=== PATIENT | female | born 1980 | race Caucasian/White ===

== ENCOUNTER 2017-04-27 10:05 | Outpatient (CLI) | payer MEDICARE, MEDICAID | END 2017-04-27 10:06 | disposition home or self-care (01) | LOC: LAB.N 10:05 | PROVIDERS: ATTEND Nurse Practitioner Gerontology | DX: N39.0 Urinary tract infection, site not specified (principal) | CPT/HCPCS: 87086 ==

== ENCOUNTER 2017-07-19 10:36 | Emergency (ER) | payer MEDICARE, MEDICAID ==
[2017-07-19 10:44] VITALS: BP 126/78
--- NOTE | 2017-07-19 10:54 | ED Physician Documentation ---
PD HPI URI - Stated complaint Stated Complaint: SORE THROAT - Chief complaint Chief Complaint: Heent - History obtained from History obtained from: Patient - History of Present Illness Timing - onset: Yesterday Timing duration: Days (1) Timing details: Abrupt onset, Still present Associated symptoms: Sore throat, Swollen nodes. No: Fever, Nasal congestion, Dry cough Contributing factors: Sick contact (her son was Dx with strep culture positive earlier this week.) Similar symptoms before: Has not had sx before Recently seen: Not recently seen Review of Systems Constitutional: denies: Fever Nose: denies: Rhinorrhea / runny nose, Congestion Throat: reports: Sore throat, Swollen tonsils Respiratory: denies: Cough GI: denies: Nausea, Vomiting, Diarrhea Skin: denies: Rash PD PAST MEDICAL HISTORY - Past Medical History Cardiovascular: None Respiratory: None Neuro: Multiple sclerosis, Fainting Endocrine/Autoimmune: None GI: None 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 : None HEENT: None Psych: Anxiety Musculoskeletal: Chronic back pain, Other Derm: None - Past Surgical History Past Surgical History: No - Present Medications Home Medications: Ambulatory Orders Medication Instructions Recorded Confirmed Acyclovir 200 mg PO DAILY 07/19/17 07/19/17 Alprazolam [Xanax] 07/19/17 Amoxicillin 500 mg PO TID #24 capsule 07/19/17 Dextroamphetamine/Amphetamine 5 mg PO PRN PRN 07/19/17 07/19/17 [Adderall 5 mg Tablet] Paroxetine HCl [Paxil] 60 mg PO DAILY 07/19/17 07/19/17 Tamsulosin [Flomax] 0.4 mg PO DAILY 07/19/17 07/19/17 - Allergies Allergies/Adverse Reactions: Allergies Allergy/AdvReac Type Severity Reaction Status Date / Time No Known Drug Allergies Allergy Verified 07/14/13 10:08 - Social History Does the pt smoke?: No Smoking Status: Never smoker - Immunizations Immunizations are current?: Yes PD ED PE NORMAL - Vitals Vital signs reviewed: Yes - General General: Alert and oriented X 3, Well developed/nourished - HEENT HEENT: Ears normal. No: Pharynx benign (red and swollen tonsils with some white exudate. ) - Neck Neck: Supple, no meningeal sign, Other (anterior adenopathy) - Cardiac Cardiac: RRR, No murmur - Respiratory Respiratory: Clear bilaterally - Derm Derm: Normal color, Warm and dry, No rash Results - Vitals Vitals: Vital Signs - 24 hr 07/19/17 10:42 Temperature 36.3 C L Heart Rate 72 Respiratory 17 Rate Blood Pressure 126/78 O2 Saturation 100 Oxygen O2 Source Room air PD MEDICAL DECISION MAKING - ED course Complexity details: considered differential (her son was Dx with culture positive strep earlier this week and now she has sore throat iwth adenopathy and exudate. ), d/w patient Departure - Departure Disposition: Home, Self Care Clinical Impression: Acute bacterial pharyngitis Condition: Stable Record reviewed to determine appropriate education?: Yes Instructions: ED Strep Pharyngitis Conf Follow-Up: Susana Ray ARNP [Primary Care Provider] - Prescriptions: Amoxicillin 500 mg PO TID #24 capsule Comments: Given that her son has confirmed strep and you are now having sore throat with strep symptoms, we will treat it as strep. Drink lots of fluids. Tylenol or ibuprofen if needed for pains. Amoxicillin 500 mg 3 times a day for a week. Recheck if not improved over the next several days. Discharge Date/Time: 07/19/17 12:02
[2017-07-19] MEDS ORDERED: DEXAMETHASONE 10 MG/ML VIAL PO STA (11:04)
[2017-07-19] MEDS ORDERED: AMOXICILLIN 250 MG CAPSULE PO STA (11:04)
[2017-07-19] MEDS ORDERED: AMOXICILLIN 250 MG CAPSULE PO SCH (12:00)
== END 2017-07-19 12:02 | disposition home or self-care (01) ==
LOC: ED 10:36
DX: J02.8 Acute pharyngitis due to other specified organisms (principal); B96.89 Other specified bacterial agents as the cause of diseases classified elsewhere; G35 Multiple sclerosis
CPT/HCPCS: 99283; A9270

== ENCOUNTER 2017-08-26 13:50 | Emergency (ER) | payer MEDICARE, MEDICAID ==
[2017-08-26 14:01] VITALS: BP 138/87
--- NOTE | 2017-08-26 14:35 | XRAY Report ---
EXAM: LEFT FOOT RADIOGRAPHY EXAM DATE: 08/26/2017 02:24 PM. CLINICAL HISTORY: Pain to foot after increased ambulation-MS history. COMPARISON: None. TECHNIQUE: 3 views. FINDINGS: Bones: Normal. No fractures or bone lesions. Joints: Normal. No subluxations. Soft Tissues: Normal. No soft tissue swelling. IMPRESSION: Negative foot radiography. [facility] Referring Provider Line: [phone] SITE ID: [id number]
--- NOTE | 2017-08-26 15:42 | ED Physician Documentation ---
History of Present Illness - Stated complaint Stated Complaint: FOOT PX - Chief complaint Chief Complaint: Ext Problem - History obtained from History obtained from: Patient, Family - History of Present Illness Timing: How many days ago (5) Pain level max: 5 Pain level now: 4 Improved by: Rest Worsened by: Walking - Additonal information Additional information: Patient is a 36-year-old female with a history of multiple sclerosis, recently had a flare and was treated with high-dose steroids. Since that time she has been trying to increase her activity level, walking approximately 3 miles per day. She is started developed pain in her left foot, along the plantar aspect when walking. Sent in by her neurologist for evaluation. 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 HEENT: None Psych: Anxiety Musculoskeletal: Chronic back pain, Other Derm: None - Past Surgical History Past Surgical History: No - Present Medications Home Medications: Ambulatory Orders Medication Instructions Recorded Confirmed Acyclovir 200 mg PO DAILY 07/19/17 07/19/17 Dextroamphetamine/Amphetamine 5 mg PO PRN PRN 07/19/17 07/19/17 [Adderall 5 mg Tablet] Paroxetine HCl [Paxil] 80 mg PO DAILY 07/19/17 07/19/17 Tamsulosin [Flomax] 0.4 mg PO DAILY 07/19/17 07/19/17 Dalfampridine [Ampyra] 10 mg BID 08/26/17 08/26/17 - Allergies Allergies/Adverse Reactions: Allergies Allergy/AdvReac Type Severity Reaction Status Date / Time No Known Drug Allergies Allergy Verified 08/26/17 14:01 - Social History Does the pt smoke?: No Smoking Status: Never smoker Substance Use and Type: Other - Immunizations Immunizations are current?: Yes PD ED PE NORMAL - Vitals Vital signs reviewed: Yes - General General: Alert and oriented X 3, No acute distress, Well developed/nourished - HEENT HEENT: PERRL, Moist mucous membranes - Neck Neck: Supple, no meningeal sign - Cardiac Cardiac: RRR, Strong equal pulses - Respiratory Respiratory: No respiratory distress, Clear bilaterally - Abdomen Abdomen: Soft, Non tender, Non distended - Derm Derm: Warm and dry - Extremities Extremities: No deformity, No tenderness to palpate, Normal ROM s pain, Other ( Normal examination of the bilateral feet. No tenderness. No bruising. Neurovascularly intact) - Neuro Neuro: Alert and oriented X 3 - Psych Psych: Normal mood, Normal affect Results - Vitals Vitals: Vital Signs - 24 hr 08/26/17 13:59 Temperature 36.8 C Heart Rate 82 Respiratory 18 Rate Blood Pressure 138/87 H O2 Saturation 100 Oxygen O2 Source Room air - Rads (name of study) Left foot x-ray Radiology: Prelim report reviewed, EMP read contemporaneously, See rad report ( Normal) PD MEDICAL DECISION MAKING - ED course Complexity details: reviewed results, re-evaluated patient, considered differential, d/w patient, d/w family ED course: Patient is a 36-year-old female presents to the emergency department with what appears to be a left foot sprain. Placed in a postoperative shoe for comfort and she is ambulating quite well with the use of her cane that she uses at home. We did attempt crutches as well, but she does not care for these. Will utilize the postoperative shoe and her cane. Will use Motrin and Tylenol as needed for pain. No fractures. Patient counseled regarding signs and symptoms for which I believe and urgent re-evaluation would be necessary. Patient with good understanding of and agreement to plan and is comfortable going home at this time This document was made in part using voice recognition software. While efforts are made to proofread this document, sound alike and grammatical errors may occur. Departure - Departure Disposition: 01 Home, Self Care Clinical Impression: FSPR (foot sprain) Qualifiers: Encounter type: initial encounter Laterality: left Qualified Code(s): S93.602A - Unspecified sprain of left foot, initial encounter Condition: Good Instructions: ED Sprain Foot Follow-Up: Susana Ray ARNP [Primary Care Provider] - Within 1 week Comments: Use the post op shoe as needed to help heal your sprain. Return if you worsen.
== END 2017-08-26 15:50 | disposition home or self-care (01) ==
LOC: ED 13:50
DX: S93.602A Unspecified sprain of left foot, initial encounter (principal); X50.9XXA Other and unspecified overexertion or strenuous movements or postures, initial encounter; G35 Multiple sclerosis; Z79.52 Long term (current) use of systemic steroids
CPT/HCPCS: 99282; 99283

== ENCOUNTER 2017-11-26 08:00 | Outpatient (CLI) | payer MEDICARE, MEDICAID ==
[2017-11-26 21:06] LABS: HCG,QUALITATIVE BLOOD NEGATIVE
== END 2017-11-26 08:01 ==
LOC: LAB.N 08:00
PROVIDERS: ATTEND Nurse Practitioner Gerontology
DX: N91.2 Amenorrhea, unspecified (principal)
CPT/HCPCS: 36415; 84703

== ENCOUNTER 2017-12-01 14:40 | Outpatient (CLI) | payer MEDICARE, MEDICAID | END 2017-12-01 14:41 | LOC: LAB.WCP 14:40 | PROVIDERS: ATTEND Obstetrics & Gynecology | DX: Z32.01 Encounter for pregnancy test, result positive (principal); Z36.9 Encounter for antenatal screening, unspecified | CPT/HCPCS: 36415; 84702 ==

== ENCOUNTER 2017-12-03 08:00 | Outpatient (CLI) | payer MEDICARE, MEDICAID ==
[2017-12-03 18:58] LABS: BILIRUBIN,URINE NEGATIVE (NEGATIVE); GLUCOSE, URINE (UA) NEGATIVE (NEGATIVE); KETONES,URINE (UA) NEGATIVE (NEGATIVE); LEUKOCYTE ESTERASE, URINE NEGATIVE (NEGATIVE); NITRITE,URINE NEGATIVE (NEGATIVE); OCCULT BLOOD,URINE NEGATIVE (NEGATIVE); PROTEIN,URINE NEGATIVE (NEGATIVE); UROBILINOGEN,URINE 0.2 (NORMAL) E.U./dL (NORMAL)
[2017-12-03 19:09] LABS: BACTERIA,URINE None Seen /HPF (None Seen); BASOPHILS % (AUTO) 0.4 %; CLARITY,URINE CLEAR (CLEAR); EOSINOPHILS # (AUTO) 0.1 10^3/uL (0.0-0.7); EOSINOPHILS % (AUTO) 1.2 %; HGB - HEMOGLOBIN 13.1 g/dL (12.0-16.0); LYMPHOCYTES # (AUTO) 1.4 10^3/uL (1.5-3.5); LYMPHOCYTES % (AUTO) 21.3 %; MEAN CORPUSCULAR HEMOGLOBIN 31.5 pg (27.0-31.0); MEAN CORPUSCULAR VOLUME 95.4 fL (81.0-99.0); MEAN PLATELET VOLUME 9.8 fL (7.9-10.8); MONOCYTES # (AUTO) 0.6 10^3/uL (0.0-1.0); MONOCYTES % (AUTO) 8.8 %; NEUTROPHILS # (AUTO) 4.3 10^3/uL (1.5-6.6); NEUTROPHILS % (AUTO) 68.3 %; PLT - PLATELET COUNT 319 10^3/uL (130-450); RBC,URINE 0-5 /HPF (0-5); RED BLOOD COUNT 4.15 10^6/uL (4.20-5.40); RED CELL DISTRIBUTION WIDTH 13.6 % (12.0-15.0); SQUAMOUS EPITHELIAL CELL,UR FEW Squamous (<= Few); WHITE BLOOD COUNT 6.3 x10^3/uL (4.8-10.8)
[2017-12-04 15:21] LABS: HIV AG/AB 4TH GEN NON-REACTIVE (NON-REACTIVE)
[2017-12-04 16:02] LABS: HEPATITIS B SURFACE ANTIGEN NON-REACTIVE (NON-REACTIVE); HEPATITIS C ANTIBODY NON-REACTIVE (NON-REACTIVE)
== END 2017-12-03 08:01 ==
LOC: LAB.WCP 08:00
PROVIDERS: ATTEND Obstetrics & Gynecology
DX: Z36.9 Encounter for antenatal screening, unspecified (principal); Z32.01 Encounter for pregnancy test, result positive
CPT/HCPCS: 36415; 81001; 81599; 84702; 85025; 86762; 86803; 86850; 86900; 86901; 87340; G0475; 86592; 87389

== ENCOUNTER 2017-12-17 10:41 | Outpatient (CLI) | payer MEDICARE, MEDICAID | END 2017-12-17 10:42 | disposition home or self-care (01) | LOC: LAB 10:41 | PROVIDERS: ATTEND Obstetrics & Gynecology | DX: O20.0 Threatened abortion (principal) | CPT/HCPCS: 36415; 84702 ==

== ENCOUNTER 2017-12-19 14:20 | Outpatient (CLI) | payer MEDICARE, MEDICAID | END 2017-12-19 14:21 | disposition home or self-care (01) | LOC: LAB 14:20 | PROVIDERS: ATTEND Obstetrics & Gynecology | DX: Z32.00 Encounter for pregnancy test, result unknown (principal) | CPT/HCPCS: 36415; 84702 ==

== ENCOUNTER 2017-12-23 16:15 | Outpatient (CLI) | payer MEDICARE, MEDICAID | END 2017-12-23 16:16 | disposition home or self-care (01) | LOC: LAB 16:15 | PROVIDERS: ATTEND Obstetrics & Gynecology | DX: O02.1 Missed abortion (principal) | CPT/HCPCS: 36415; 84702 ==

== ENCOUNTER 2017-12-31 20:39 | Outpatient (CLI) | payer MEDICARE, MEDICAID ==
--- NOTE | 2018-01-01 07:35 | Ultrasound Report ---
Procedure Date: 12/31/2017 Accession Number: [id number] / [id number] Procedure: US - OB First Trimester CPT Code: FULL RESULT: EXAM: FIRST TRIMESTER OBSTETRIC ULTRASOUND (less than 11 weeks). EXAM DATE: 12/31/2017 09:25 PM. CLINICAL HISTORY: Missed . LMP: 10/27/2017. COMPARISONS: None. TECHNIQUE: Transabdominal and transvaginal ultrasound examination with static image documentation. CLINICAL DATES: EGA 9 weeks 2 days with VIVIEN 08/03/2018 based on LMP. ASSESSMENT: Gestational Sac: Single intrauterine. Mean gestational sac diameter: 14 mm = 6 weeks 2 days. Embryo: None. Cardiac activity: None. Yolk sac: None. Amniotic fluid: Not accurately assessed at this gestational age. Early placenta: Not visible at this gestational age. Other: Small perigestational hemorrhage along the fundal margin of the gestational sac measuring 0.6 cm in length. MATERNAL STRUCTURES: Uterus: Retroverted and retroflexed. Unremarkable. Cervix: Closed. Right Ovary/Adnexa: Unremarkable. The ovary measures 2.3 x 1.4 x 2 cm, volume 3.4 cc. Left Ovary/Adnexa: Unremarkable. The ovary measures 3.1 x 1.5 x 2.7 cm, volume 6.4 cc. 1.4 x 1.6 x 1.7 cm complex left ovarian cyst with debris and mild peripheral flow. No mural nodules or thickened septations. Free Fluid: None. Other: None. IMPRESSION: 1. Single intrauterine gestational sac with a mean sac diameter of 14 mm corresponding to an estimated gestational age of 6 weeks 2 days with an VIVIEN of 08/24/2018. This is discordant with dates based on LMP. Findings may represent an early unless the patient had a fetus/embryo on a prior study. Mean sac diameter is less than 25 mm for diagnostic establishment of failure. Patient may benefit from short interval follow-up and laboratory/clinical monitoring. 2. Assigned dating is VIVINE 08/24/2018 based on current ultrasound. 3. Small tiffanie-gestational hemorrhage located adjacent to the superior margin of the gestational sac at the fundus. 4. 1.7 cm left ovarian corpus luteum. Otherwise, both ovaries and adnexa are normal. [facility] The call report notification system was initiated by Dr. Terra Bermudez at 22:42 hrs on 12/31/17. The above findings were discussed with Dr. Dunne, Dr by Dr. Terra Bermudez at 22:45 hrs on 12/31/17.
== END 2017-12-31 20:40 | disposition home or self-care (01) ==
LOC: DI 20:39
PROVIDERS: ATTEND Obstetrics & Gynecology
DX: O02.1 Missed abortion (principal)
CPT/HCPCS: 76801; 76817

== ENCOUNTER 2018-01-21 08:00 | Outpatient (CLI) | payer MEDICARE, MEDICAID | END 2018-01-21 08:01 | disposition home or self-care (01) | LOC: LAB.WCP 08:00 | PROVIDERS: ATTEND Obstetrics & Gynecology | DX: O02.1 Missed abortion (principal) | CPT/HCPCS: 36415; 84702 ==

== ENCOUNTER 2018-01-28 08:00 | Outpatient (CLI) | payer MEDICARE, MEDICAID | END 2018-01-28 08:01 | LOC: LAB.WCP 08:00 | PROVIDERS: ATTEND Obstetrics & Gynecology | DX: O02.1 Missed abortion (principal) | CPT/HCPCS: 36415; 84702 ==

== ENCOUNTER 2018-03-22 09:58 | Emergency (ER) | payer MEDICARE, MEDICAID ==
[2018-03-22 10:55] LABS: BILIRUBIN,URINE NEGATIVE (NEGATIVE); GLUCOSE, URINE (UA) NEGATIVE (NEGATIVE); KETONES,URINE (UA) NEGATIVE (NEGATIVE); LEUKOCYTE ESTERASE, URINE NEGATIVE (NEGATIVE); NITRITE,URINE NEGATIVE (NEGATIVE); OCCULT BLOOD,URINE NEGATIVE (NEGATIVE); PROTEIN,URINE NEGATIVE (NEGATIVE); UROBILINOGEN,URINE 0.2 (NORMAL) E.U./dL (NORMAL)
[2018-03-22 10:58] LABS: CLARITY,URINE CLEAR (CLEAR); HCG UR QUAL NEGATIVE
--- NOTE | 2018-03-22 12:32 | ED Physician Documentation ---
History of Present Illness - Stated complaint Stated Complaint: FEMALE - Chief complaint Chief Complaint: Abd Pain - Additonal information Additional information: hx from pt hx MS weak all over dysuria + leuk est on dip at home sx c/w prior IUTI no fever some low flank pain Review of Systems Constitutional: reports: Fatigue. 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 HEENT: None Psych: Anxiety Musculoskeletal: Chronic back pain, Other Derm: None - Past Surgical History Past Surgical History: No - Present Medications Home Medications: Ambulatory Orders Medication Instructions Recorded Confirmed Acyclovir 200 mg PO DAILY 07/19/17 07/19/17 Paroxetine HCl [Paxil] 80 mg PO DAILY 07/19/17 07/19/17 Tamsulosin [Flomax] 0.4 mg PO DAILY 07/19/17 07/19/17 Cephalexin [Keflex] 500 mg PO Q6H #28 capsule 03/22/18 Dimethyl Fumarate [Tecfidera] 03/22/18 03/22/18 - Allergies Allergies/Adverse Reactions: Allergies Allergy/AdvReac Type Severity Reaction Status Date / Time No Known Drug Allergies Allergy Verified 03/22/18 10:19 - Social History Does the pt smoke?: No Smoking Status: Never smoker - Immunizations Immunizations are current?: Yes PD ED PE NORMAL - Vitals Vital signs reviewed: Yes - Neck Neck: Supple, no meningeal sign - Cardiac Cardiac: RRR - Respiratory Respiratory: No respiratory distress - Abdomen Abdomen: Soft, Non tender - Back Back: No CVA TTP - Neuro Neuro: Alert and oriented X 3 Results - Vitals Vitals: Vital Signs - 24 hr 03/22/18 10:16 Temperature 36.7 C Heart Rate 81 Respiratory 20 Rate Blood Pressure 105/68 O2 Saturation 100 Oxygen O2 Source Room air - Labs Labs: Laboratory Tests 03/22/18 10:40 Urine Color YELLOW Urine Clarity CLEAR Urine pH 6.0 Ur Specific Morton 1.010 Urine Protein NEGATIVE Urine Glucose (UA) NEGATIVE Urine Ketones NEGATIVE Urine Occult Blood NEGATIVE Urine Nitrite NEGATIVE Urine Bilirubin NEGATIVE Urine Urobilinogen 0.2 (NORMAL) Ur Leukocyte Esterase NEGATIVE Ur Microscopic Review NOT INDICATED Urine Culture Comments NOT INDICATED Urine HCG, Qual NEGATIVE PD MEDICAL DECISION MAKING - ED course ED course: urien clean here but + dip and cludy at home and sx c/w UTI and hx same with same sx so will tx as UTI but also added on STD tests - Sepsis Event Vital Signs: Vital Signs - 24 hr 03/22/18 10:16 Temperature 36.7 C Heart Rate 81 Respiratory 20 Rate Blood Pressure 105/68 O2 Saturation 100 Oxygen O2 Source Room air Departure - Departure Disposition: Home, Self Care Clinical Impression: UTI (urinary tract infection) Qualifiers: Urinary tract infection type: acute cystitis Hematuria presence: without hematuria Qualified Code(s): N30.00 - Acute cystitis without hematuria Instructions: ED UTI Cystitis Female Follow-Up: Susana Ray ARNP [Primary Care Provider] - Prescriptions: Cephalexin [Keflex] 500 mg PO Q6H #28 capsule Comments: Drink plenty of fluids A urine culture will be run and you will be called if a different antibiotic is needed
[2018-03-22 12:40] VITALS: BP 115/74
== END 2018-03-22 12:45 | disposition home or self-care (01) ==
LOC: ED 09:58
DX: N30.00 Acute cystitis without hematuria (principal); G35 Multiple sclerosis
CPT/HCPCS: 81001; 81003; 81025; 87086; 87491; 87591; 99282; 99283

== ENCOUNTER 2018-07-02 11:29 | Emergency (ER) | payer MEDICARE, MEDICAID ==
[2018-07-02 11:58] VITALS: BP 128/67
--- NOTE | 2018-07-02 13:02 | XRAY Report ---
Reason: fall Procedure Date: 07/02/2018 Accession Number: [id number] / [id number] Procedure: XR - Knee 4 View RT CPT Code: FULL RESULT: EXAM: RIGHT KNEE RADIOGRAPHY EXAM DATE: 07/02/2018 12:51 PM. CLINICAL HISTORY: Fall. COMPARISON: None. TECHNIQUE: 5 views. FINDINGS: Bones: Normal. No fractures or bone lesions. Joints: Normal. No effusion. No subluxations. Soft Tissues: Normal. No soft tissue swelling. IMPRESSION: Normal knee radiography. [facility]
--- NOTE | 2018-07-02 13:05 | ED Physician Documentation ---
PD HPI LOWER EXT INJURY - Stated complaint Stated Complaint: R KNEE PX - Chief complaint Chief Complaint: Trauma Ext - History obtained from History obtained from: Patient - History of Present Illness PD HPI LOW EXT INJURY LOCATION: Right, Knee Type of injury: Fall Where injury occurred: Home Timing - onset: How many weeks ago (1) Timing - duration: Weeks (1) Timing - details: Abrupt onset Improved by: Rest, Immobilization Worsened by: Moving, Palpating Associated symptoms: No: Weakness, Numbness, Tingling Recently seen: Not recently seen - Additional information Additional information: 37-year-old female with a history of MS, states that she fell approximately a week ago landing on the right knee. Is having continued pain since that time. She broke her walker at that time and has been unable to get another one. Has been using a cane to help her walk. States the swelling has mostly decreased now. 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: None Psych: Anxiety Musculoskeletal: Chronic back pain, Other Derm: None - Past Surgical History Past Surgical History: No - Present Medications Home Medications: Ambulatory Orders Medication Instructions Recorded Confirmed Acyclovir 200 mg PO DAILY 07/19/17 07/19/17 Paroxetine HCl [Paxil] 80 mg PO DAILY 07/19/17 07/19/17 Tamsulosin [Flomax] 0.4 mg PO DAILY 07/19/17 07/19/17 Dimethyl Fumarate [Tecfidera] 03/22/18 03/22/18 Dextroamphetamine/Amphetamine 07/02/18 [Adderall Xr 5 mg Capsule] - Allergies Allergies/Adverse Reactions: Allergies Allergy/AdvReac Type Severity Reaction Status Date / Time No Known Drug Allergies Allergy Verified 07/02/18 11:58 - Social History Does the pt smoke?: No Smoking Status: Never smoker - Immunizations Immunizations are current?: Yes PD ED PE NORMAL - Vitals Vital signs reviewed: Yes - General General: Alert and oriented X 3, No acute distress - HEENT HEENT: Moist mucous membranes - Derm Derm: Warm and dry - Extremities Extremities: Other (R knee - Mild tenderness along the lateral joint line of the right knee. No swelling. ACL, PCL, LCL and MCL are intact. There may be slight laxity with the LCL. NVI) - Neuro Neuro: Alert and oriented X 3 Results - Vitals Vitals: Vital Signs - 24 hr 07/02/18 11:54 Temperature 36.3 C L Heart Rate 75 Respiratory 16 Rate Blood Pressure 128/67 O2 Saturation 100 Oxygen O2 Source Room air - Rads (name of study) R knee xray Radiology: Prelim report reviewed, EMP read contemporaneously, See rad report (normal) PD MEDICAL DECISION MAKING - ED course Complexity details: reviewed results, re-evaluated patient, considered differential, d/w patient ED course: 37-year-old female with a right knee sprain. No acute findings on x-ray. Has a brace that she will continue to wear. This is a soft neoprene style brace. Also given a walker. Will follow up with her doctor. Patient counseled regarding signs and symptoms for which I believe and urgent re-evaluation would be necessary. Patient with good understanding of and agreement to plan and is comfortable going home at this time This document was made in part using voice recognition software. While efforts are made to proofread this document, sound alike and grammatical errors may occur. Departure - Departure Disposition: 01 Home, Self Care Clinical Impression: Sprain of right knee Qualifiers: Encounter type: initial encounter Involved ligament of knee: unspecified ligament Qualified Code(s): S83.91XA - Sprain of unspecified site of right knee, initial encounter Condition: Good Instructions: ED Sprain Knee Follow-Up: Susana Ray ARNP [Primary Care Provider] - Within 1 week Comments: Return if you worsen. Use the walker to help you walk and continue using the brace at home. Your x-ray is normal today
== END 2018-07-02 13:13 | disposition home or self-care (01) ==
LOC: ED 11:29
DX: S83.91XA Sprain of unspecified site of right knee, initial encounter (principal); W18.30XA Fall on same level, unspecified, initial encounter; W22.09XA Striking against other stationary object, initial encounter; Y92.009 Unspecified place in unspecified non-institutional (private) residence as the place of occurrence of the external cause; G35 Multiple sclerosis
CPT/HCPCS: 99282; 99283

== ENCOUNTER 2018-08-18 16:50 | Emergency (ER) | payer MEDICARE, MEDICAID ==
[2018-08-18 17:24] LABS: BASOPHILS # (AUTO) 0.1 10^3/uL (0.0-0.1); BASOPHILS % (AUTO) 0.7 %; EOSINOPHILS # (AUTO) 0.1 10^3/uL (0.0-0.7); EOSINOPHILS % (AUTO) 1.3 %; HGB - HEMOGLOBIN 12.8 g/dL (12.0-16.0); LYMPHOCYTES % (AUTO) 13.7 %; MEAN CORPUSCULAR HEMOGLOBIN 31.5 pg (27.0-31.0); MEAN CORPUSCULAR HGB CONC 33.8 g/dL (32.0-36.0); MEAN CORPUSCULAR VOLUME 93.2 fL (81.0-99.0); MEAN PLATELET VOLUME 8.4 fL (7.9-10.8); MONOCYTES # (AUTO) 0.7 10^3/uL (0.0-1.0); MONOCYTES % (AUTO) 9.5 %; NEUTROPHILS # (AUTO) 5.6 10^3/uL (1.5-6.6); NEUTROPHILS % (AUTO) 74.8 %; PLT - PLATELET COUNT 344 10^3/uL (130-450); RED BLOOD COUNT 4.07 10^6/uL (4.20-5.40); RED CELL DISTRIBUTION WIDTH 12.8 % (12.0-15.0); WHITE BLOOD COUNT 7.5 x10^3/uL (4.8-10.8)
[2018-08-18 17:44] LABS: ALBUMIN 4.4 g/dL (3.2-5.5); ALBUMIN/GLOBULIN RATIO 1.3 (1.0-2.2); BILIRUBIN,TOTAL 0.5 mg/dL (0.2-1.0); CALCIUM 9.4 mg/dL (8.5-10.3); CREATININE 0.6 mg/dL (0.4-1.0); TOTAL PROTEIN 7.8 g/dL (6.7-8.2)
[2018-08-18 18:04] LABS: MUDS CUTOFF CONCENTRATIONS CUTOFF CONC BELOW:
[2018-08-18 18:06] LABS: BILIRUBIN,URINE NEGATIVE (NEGATIVE); GLUCOSE, URINE (UA) NEGATIVE (NEGATIVE); KETONES,URINE (UA) 40 mg/dL (NEGATIVE); LEUKOCYTE ESTERASE, URINE NEGATIVE (NEGATIVE); NITRITE,URINE NEGATIVE (NEGATIVE); OCCULT BLOOD,URINE TRACE-LYSE (NEGATIVE); PH,URINE 6.5 PH (5.0-7.5); PROTEIN,URINE NEGATIVE (NEGATIVE); UROBILINOGEN,URINE 0.2 (NORMAL) E.U./dL (NORMAL)
[2018-08-18 18:09] LABS: CLARITY,URINE HAZY (CLEAR); HCG UR QUAL NEGATIVE
[2018-08-18 18:31] LABS: BACTERIA,URINE None Seen /HPF (None Seen); RBC,URINE 0-5 /HPF (0-5); SQUAMOUS EPITHELIAL CELL,UR MANY Squamous (<= Few)
[2018-08-18] MEDS ORDERED: BENZTROPINE 2 MG/2 ML VIAL IM STA (19:02)
--- NOTE | 2018-08-18 19:08 | ED Physician Documentation ---
History of Present Illness - Stated complaint Stated Complaint: DRUG REACTION - Chief complaint Chief Complaint: General - History obtained from History obtained from: Patient, Family - History of Present Illness Timing: How many days ago (several) Pain level max: 0 Pain level now: 0 - Additonal information Additional information: 37-year-old female presents to the emergency department with drooling fatigue and anxiety after starting Risperdal a few days ago. Nothing makes it better or worse. She was started on Risperdal for psychosis. Is not have any hallucinations at this time. 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 : None HEENT: None Psych: Anxiety Musculoskeletal: Chronic back pain, Other Derm: None - Past Surgical History Past Surgical History: No - Present Medications Home Medications: Ambulatory Orders Medication Instructions Recorded Confirmed Acyclovir 400 mg PO TID 07/19/17 07/19/17 Paroxetine HCl [Paxil] 20 mg PO DAILY 07/19/17 07/19/17 Tamsulosin [Flomax] 0.4 mg PO DAILY 07/19/17 07/19/17 Dimethyl Fumarate [Tecfidera] 03/22/18 03/22/18 ARIPiprazole [Abilify] 5 mg PO DAILY 08/18/18 08/18/18 Meclizine [Antivert] 25 mg PO DAILY 08/18/18 08/18/18 Risperidone [Risperdal] 2 mg PO BID 08/18/18 08/18/18 clonazePAM [Clonazepam] 0.5 mg PO QPM 08/18/18 08/18/18 - Allergies Allergies/Adverse Reactions: Allergies Allergy/AdvReac Type Severity Reaction Status Date / Time No Known Drug Allergies Allergy Verified 08/18/18 17:03 - Social History Does the pt smoke?: No Smoking Status: Never smoker - Immunizations Immunizations are current?: Yes PD ED PE NORMAL - Vitals Vital signs reviewed: Yes - General General: Alert and oriented X 3, No acute distress - HEENT HEENT: Moist mucous membranes - Neck Neck: Supple, no meningeal sign - Cardiac Cardiac: RRR - Respiratory Respiratory: No respiratory distress, Clear bilaterally - Abdomen Abdomen: Soft, Non tender, Non distended - Derm Derm: Warm and dry - Extremities Extremities: No edema - Neuro Neuro: Alert and oriented X 3, No motor deficit, No sensory deficit - Psych Psych: Other (drowsy, anxious) Results - Vitals Vitals: Vital Signs - 24 hr 08/18/18 08/18/18 08/18/18 16:58 17:03 19:17 Temperature 36.6 C 36.5 C Heart Rate 98 89 88 Respiratory 18 16 16 Rate Blood Pressure 116/78 121/75 111/74 O2 Saturation 100 98 98 08/18/18 08/18/18 08/19/18 21:41 22:39 00:30 Temperature Heart Rate 102 H 83 103 H Respiratory 18 16 16 Rate Blood Pressure 132/83 H 124/71 128/91 H O2 Saturation 95 96 98 Oxygen O2 Source Room air - Labs Labs: Laboratory Tests 08/18/18 08/18/18 08/18/18 16:19 16:19 17:59 WBC 7.5 RBC 4.07 L Hgb 12.8 Hct 37.9 MCV 93.2 MCH 31.5 H MCHC 33.8 RDW 12.8 Plt Count 344 MPV 8.4 Neut # (Auto) 5.6 Lymph # (Auto) 1.0 L [place] # (Auto) 0.7 Eos # (Auto) 0.1 Baso # (Auto) 0.1 Absolute Nucleated RBC 0.00 Nucleated RBC % 0.0 Sodium 138 Potassium 3.7 Chloride 102 Carbon Dioxide 26 Anion Gap 10.0 BUN 12 Creatinine 0.6 Estimated GFR (MDRD) 114 Glucose 108 H Calcium 9.4 Total Bilirubin 0.5 AST 16 ALT 12 Alkaline Phosphatase 66 Total Protein 7.8 Albumin 4.4 Globulin 3.4 Albumin/Globulin Ratio 1.3 Lipase 24 Urine Color Urine Clarity Urine pH Ur Specific [place] Urine Protein Urine Glucose (UA) Urine Ketones Urine Occult Blood Urine Nitrite Urine Bilirubin Urine Urobilinogen Ur Leukocyte Esterase Urine RBC Urine WBC Ur Squamous Epith Cells Urine Bacteria Ur Microscopic Review Urine Culture Comments Urine HCG, Qual Urine Opiates Screen NEGATIVE Ur Oxycodone Screen NEGATIVE Urine Methadone Screen NEGATIVE Ur Propoxyphene Screen NEGATIVE Ur Barbiturates Screen NEGATIVE Ur Tricyclics Screen NEGATIVE Ur Phencyclidine Scrn NEGATIVE Ur Amphetamine Screen NEGATIVE U Methamphetamines Scrn NEGATIVE U Benzodiazepines Scrn NEGATIVE Urine Cocaine Screen NEGATIVE U Cannabinoids Screen NEGATIVE 08/18/18 17:59 WBC RBC Hgb Hct MCV MCH MCHC RDW Plt Count MPV Neut # (Auto) Lymph # (Auto) [place] # (Auto) Eos # (Auto) Baso # (Auto) Absolute Nucleated RBC Nucleated RBC % Sodium Potassium Chloride Carbon Dioxide Anion Gap BUN Creatinine Estimated GFR (MDRD) Glucose Calcium Total Bilirubin AST ALT Alkaline Phosphatase Total Protein Albumin Globulin Albumin/Globulin Ratio Lipase Urine Color YELLOW Urine Clarity HAZY Urine pH 6.5 Ur Specific [place] 1.025 Urine Protein NEGATIVE Urine Glucose (UA) NEGATIVE Urine Ketones 40 H Urine Occult Blood TRACE-LYSE Urine Nitrite NEGATIVE Urine Bilirubin NEGATIVE Urine Urobilinogen 0.2 (NORMAL) Ur Leukocyte Esterase NEGATIVE Urine RBC 0-5 Urine WBC 0-3 Ur Squamous Epith Cells MANY Squamous H Urine Bacteria None Seen Ur Microscopic Review INDICATED Urine Culture Comments NOT INDICATED Urine HCG, Qual NEGATIVE Urine Opiates Screen Ur Oxycodone Screen Urine Methadone Screen Ur Propoxyphene Screen Ur Barbiturates Screen Ur Tricyclics Screen Ur Phencyclidine Scrn Ur Amphetamine Screen U Methamphetamines Scrn U Benzodiazepines Scrn Urine Cocaine Screen U Cannabinoids Screen PD MEDICAL DECISION MAKING - ED course Complexity details: reviewed results, re-evaluated patient, considered differential, d/w patient, d/w home care consultant ED course: 37-year-old female presents to the emergency department with what appears to be significant side effects from her Risperdal. Given Cogentin, Benadryl and finally Ativan. Discussed the case with Dr. Bianchi, psychiatry from [facility] who states there is unfortunately no room in the psychiatric unit at this time. Recommends a crisis respite bed available. There is no crisis respite bed available tonight. Will allow her to sleep in the emergency department and reevaluate in the morning to see if there is a respite bed for her to go to to allow the Risperdal to wear off And to ensure that she does not have recurrent psychosis. He does not recommend starting any other antipsychotic at this time. Patient signed out to the [facility] emergency department physician. This document was made in part using voice recognition software. While efforts are made to proofread this document, sound alike and grammatical errors may occur. Departure - Departure Clinical Impression: Medication side effect Condition: Stable
[2018-08-18 19:15] LABS: AMPHETAMINE SCREEN,URINE NEGATIVE (NEGATIVE); BENZODIAZEPINES SCREEN, URINE NEGATIVE (NEGATIVE); COCAINE SCREEN URINE NEGATIVE (NEGATIVE); METHADONE SCREEN, URINE NEGATIVE (NEGATIVE); METHAMPHETAMINES SCREEN, URINE NEGATIVE (NEGATIVE); OPIATE SCREEN, URINE NEGATIVE (NEGATIVE); OXYCODONE SCREEN, URINE NEGATIVE (NEGATIVE); PROPOXYPHENE SCREEN, URINE NEGATIVE (NEGATIVE); TRICYCLIC ANTIDEPRESSANT,URINE NEGATIVE (NEGATIVE)
[2018-08-18] MEDS ORDERED: diphenhydrAMINE INJ 50 MG/ML VIAL IM STA (20:25)
[2018-08-18] MEDS ORDERED: LORazepam 2 MG/ML VIAL IM STA (21:12)
[2018-08-19] MEDS ORDERED: LORazepam 0.5 MG TABLET PO STA (05:11)
--- NOTE | 2018-08-19 08:36 | ED Physician Documentation ---
ED Addendum - Addendum Addendum: 08/19/18 08:33 The patient's care is turned over to me at 7 AM, the patient was evaluated initially by Dr. Lopez and then observed overnight by Dr. Bianchi. The patient is pending evaluation from social work. Please refer to Dr. Lopez fullHistory and physical. The patient was seen and evaluated by social work this morning and currently the patient does not require any inpatient management or treatment. The patient currently is not manifesting any reaction from her medication and is comfortably eating her breakfast and is comfortable with the plan to be discharged home. The patient will follow up with her medical team as an outpatient for ongoing medical and medication management. The patient will return to the emergency department at any point for reevaluation
[2018-08-19 09:23] VITALS: BP 129/85
== END 2018-08-19 09:44 | disposition home or self-care (01) ==
LOC: ED 16:50
DX: R53.83 Other fatigue (principal); F41.9 Anxiety disorder, unspecified; T43.595A Adverse effect of other antipsychotics and neuroleptics, initial encounter; G35 Multiple sclerosis
CPT/HCPCS: 36415; 80053; 81001; 81025; 83690; 85025; 96372; 99282; 99284; A9270; J0515; J1200; J2060; 80306; 81003; 87086

== ENCOUNTER 2018-11-16 09:20 | Outpatient (CLI) | payer MEDICARE, MEDICAID | END 2018-11-16 23:59 | disposition home or self-care (01) | LOC: RT.N 09:20 | PROVIDERS: ATTEND Nurse Practitioner Gerontology | DX: R94.30 Abnormal result of cardiovascular function study, unspecified (principal); Z30.9 Encounter for contraceptive management, unspecified; Z86.73 Personal history of transient ischemic attack (TIA), and cerebral infarction without residual deficits | CPT/HCPCS: 93005 ==

== ENCOUNTER 2019-11-11 10:35 | Emergency (ER) | payer MEDICARE, MEDICAID ==
[2019-11-11 11:35] LABS: BASOPHILS # (AUTO) 0.1 10^3/uL (0.0-0.1); BASOPHILS % (AUTO) 0.6 %; EOSINOPHILS # (AUTO) 0.1 10^3/uL (0.0-0.7); EOSINOPHILS % (AUTO) 0.6 %; HGB - HEMOGLOBIN 13.6 g/dL (12.0-16.0); LYMPHOCYTES # (AUTO) 1.3 10^3/uL (1.5-3.5); LYMPHOCYTES % (AUTO) 14.6 %; MEAN CORPUSCULAR HEMOGLOBIN 31.8 pg (27.0-31.0); MEAN CORPUSCULAR HGB CONC 33.1 g/dL (32.0-36.0); MEAN PLATELET VOLUME 11.2 fL (7.9-10.8); MONOCYTES # (AUTO) 0.7 10^3/uL (0.0-1.0); NEUTROPHILS # (AUTO) 6.6 10^3/uL (1.5-6.6); NEUTROPHILS % (AUTO) 75.9 %; PLT - PLATELET COUNT 308 10^3/uL (130-450); RED BLOOD COUNT 4.28 10^6/uL (4.20-5.40); RED CELL DISTRIBUTION WIDTH 12.2 % (12.0-15.0); WHITE BLOOD COUNT 8.7 x10^3/uL (4.8-10.8)
[2019-11-11 11:47] LABS: ALBUMIN 4.6 g/dL (3.2-5.5); ALBUMIN/GLOBULIN RATIO 1.4 (1.0-2.2); BILIRUBIN,TOTAL 0.5 mg/dL (0.2-1.0); CALCIUM 9.4 mg/dL (8.5-10.3); CREATININE 0.6 mg/dL (0.4-1.0); TOTAL PROTEIN 7.9 g/dL (6.7-8.2)
[2019-11-11 12:51] LABS: BILIRUBIN,URINE NEGATIVE (NEGATIVE); GLUCOSE, URINE (UA) NEGATIVE (NEGATIVE); KETONES,URINE (UA) 15 mg/dL (NEGATIVE); LEUKOCYTE ESTERASE, URINE NEGATIVE (NEGATIVE); NITRITE,URINE NEGATIVE (NEGATIVE); OCCULT BLOOD,URINE TRACE-INTA (NEGATIVE); PROTEIN,URINE NEGATIVE (NEGATIVE); UROBILINOGEN,URINE 0.2 (NORMAL) E.U./dL (NORMAL)
[2019-11-11 12:57] LABS: CLARITY,URINE CLEAR (CLEAR); HCG UR QUAL NEGATIVE
[2019-11-11] MEDS ORDERED: cephALEXin 250 MG CAPSULE PO STA (13:58)
--- NOTE | 2019-11-11 14:02 | ED Physician Documentation ---
History of Present Illness - Stated complaint Stated Complaint: WEAKNESS - Chief complaint Chief Complaint: General - History obtained from History obtained from: Patient (38-year-old woman presents with generalized weakness for the last week. Slowly worsening. She attributes it to a skin infection on her left lower abdominal wall that started with a scratch and is being treated with mupirocin without improvement. She denies any fevers, chills, sore throat, runny nose, cough, abdominal pain, changes in bowel movement, or other rashes. She has a history of MS and often gets exacerbations when she gets infections.) Review of Systems Constitutional: reports: Fatigue. 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 HEENT: None Psych: Anxiety Musculoskeletal: Chronic back pain, Other Derm: None - Past Surgical History Past Surgical History: No - Present Medications Home Medications: Ambulatory Orders Medication Instructions Recorded Confirmed Acyclovir 400 mg PO TID 07/19/17 07/19/17 PARoxetine HCl [Paxil] 20 mg PO DAILY 07/19/17 07/19/17 Tamsulosin [Flomax] 0.4 mg PO DAILY 07/19/17 07/19/17 Dimethyl Fumarate [Tecfidera] 03/22/18 03/22/18 ARIPiprazole [Abilify] 5 mg PO DAILY 08/18/18 08/18/18 Meclizine [Antivert] 25 mg PO DAILY 08/18/18 08/18/18 Risperidone [Risperdal] 2 mg PO BID 08/18/18 08/18/18 clonazePAM [Clonazepam] 0.5 mg PO QPM 08/18/18 08/18/18 Cephalexin [Keflex] 500 mg PO Q6H #28 capsule 11/11/19 - Allergies Allergies/Adverse Reactions: Allergies Allergy/AdvReac Type Severity Reaction Status Date / Time No Known Drug Allergies Allergy Verified 11/11/19 10:40 - Social History Does the pt smoke?: No Smoking Status: Never smoker - Immunizations Immunizations are current?: Yes PD ED PE NORMAL - Vitals Vital signs reviewed: Yes - General General: Alert and oriented X 3, No acute distress - HEENT HEENT: PERRL, EOMI - Derm Derm: Other (There is a small pimple type lesion without significant surrounding cellulitis on the left lower abdominal wall. A culture was obtained during examination.) - Neuro Neuro: Alert and oriented X 3, No motor deficit, No sensory deficit, Other (Peripheral strength is good in all 4 extremities) Results - Vitals Vitals: Vital Signs - 24 hr 11/11/19 11/11/19 10:40 12:45 Temperature 36.7 C 36.8 C Heart Rate 77 75 Respiratory 17 16 Rate Blood Pressure 123/70 126/87 H O2 Saturation 100 100 Oxygen O2 Source Room air - Labs Labs: Laboratory Tests 11/11/19 11/11/19 11/11/19 11:24 11:24 11:24 WBC 8.7 RBC 4.28 Hgb 13.6 Hct 41.1 MCV 96.0 MCH 31.8 H MCHC 33.1 RDW 12.2 Plt Count 308 MPV 11.2 H Neut # (Auto) 6.6 Lymph # (Auto) 1.3 L [place] # (Auto) 0.7 Eos # (Auto) 0.1 Baso # (Auto) 0.1 Absolute Nucleated RBC 0.00 Nucleated RBC % 0.0 Sodium 137 Potassium 3.8 Chloride 104 Carbon Dioxide 21 Anion Gap 12.0 BUN 14 Creatinine 0.6 Estimated GFR (MDRD) 113 Glucose 89 Calcium 9.4 Total Bilirubin 0.5 AST 13 ALT 10 Alkaline Phosphatase 64 Total Protein 7.9 Albumin 4.6 Globulin 3.3 Albumin/Globulin Ratio 1.4 Lipase 27 Urine Color YELLOW Urine Clarity CLEAR Urine pH 7.0 Ur Specific [place] 1.010 Urine Protein NEGATIVE Urine Glucose (UA) NEGATIVE Urine Ketones 15 H Urine Occult Blood TRACE-INTA Urine Nitrite NEGATIVE Urine Bilirubin NEGATIVE Urine Urobilinogen 0.2 (NORMAL) Ur Leukocyte Esterase NEGATIVE Ur Microscopic Review NOT INDICATED Urine Culture Comments NOT INDICATED Urine HCG, Qual NEGATIVE PD MEDICAL DECISION MAKING - ED course ED course: 38-year-old woman presents with an exacerbation of multiple sclerosis related to a mild abdominal wall infection for which she is started on Keflex and a culture was obtained. We discussed steroids, but we agree that her side effects are bad with these and hopefully the antibiotics alone will improve her. Departure - Departure Disposition: 01 Home, Self Care Clinical Impression: Abdominal wall cellulitis, Exacerbation of multiple sclerosis Condition: Good Record reviewed to determine appropriate education?: Yes Instructions: Cellulitis Dc Prescriptions: Cephalexin [Keflex] 500 mg PO Q6H #28 capsule Comments: We are performing a wound culture, the results should be done in 48-72 hours. If antibiotic change is necessary we will call you. Return if worse in the meantime, especially if you develop increased pain, fevers, cannot keep down the medication. Otherwise follow-up with your physician in approximately 2-3 days. Prescription sent electronically to [facility]
[2019-11-11 14:07] VITALS: BP 114/65
== END 2019-11-11 14:10 | disposition home or self-care (01) ==
LOC: ED 10:35
DX: L03.311 Cellulitis of abdominal wall (principal); G35 Multiple sclerosis
CPT/HCPCS: 36415; 80053; 81003; 81025; 83690; 85025; 87070; 87205; 93005; 99283; 99284; A9270; 81001; 87086

== ENCOUNTER 2020-06-18 07:00 | Outpatient (CLI) | payer MEDICARE, MEDICAID | END 2020-06-18 23:59 | disposition home or self-care (01) | LOC: LAB.R 07:00 | PROVIDERS: ATTEND Family Medicine | DX: R35.0 Frequency of micturition (principal) | CPT/HCPCS: 87086; 87181 ==

== ENCOUNTER 2020-07-05 09:44 | Outpatient (CLI) | payer MEDICARE, MEDICAID | END 2020-07-05 23:59 | disposition home or self-care (01) | LOC: LAB.R 09:44 | PROVIDERS: ATTEND Family Medicine | DX: R30.0 Dysuria (principal) | CPT/HCPCS: 87086; 87181 ==

== ENCOUNTER 2020-07-26 10:11 | Outpatient (CLI) | payer MEDICARE, MEDICAID ==
[2020-07-26 12:18] LABS: BASOPHILS % (AUTO) 0.5 %; EOSINOPHILS # (AUTO) 0.1 10^3/uL (0.0-0.7); EOSINOPHILS % (AUTO) 1.3 %; HGB - HEMOGLOBIN 12.4 g/dL (12.0-16.0); LYMPHOCYTES # (AUTO) 1.3 10^3/uL (1.5-3.5); LYMPHOCYTES % (AUTO) 19.9 %; MEAN CORPUSCULAR HEMOGLOBIN 30.2 pg (27.0-31.0); MEAN CORPUSCULAR HGB CONC 31.8 g/dL (32.0-36.0); MEAN CORPUSCULAR VOLUME 95.1 fL (81.0-99.0); MEAN PLATELET VOLUME 11.8 fL (7.9-10.8); MONOCYTES # (AUTO) 0.5 10^3/uL (0.0-1.0); MONOCYTES % (AUTO) 7.3 %; NEUTROPHILS # (AUTO) 4.5 10^3/uL (1.5-6.6); NEUTROPHILS % (AUTO) 70.8 %; PLT - PLATELET COUNT 343 10^3/uL (130-450); RED CELL DISTRIBUTION WIDTH 13.7 % (12.0-15.0); WHITE BLOOD COUNT 6.3 x10^3/uL (4.8-10.8)
[2020-07-26 12:45] LABS: ALBUMIN 4.4 g/dL (3.2-5.5); ALBUMIN/GLOBULIN RATIO 1.5 (1.0-2.2); BILIRUBIN,TOTAL 0.3 mg/dL (0.2-1.0); CALCIUM 9.3 mg/dL (8.5-10.3); CREATININE 0.7 mg/dL (0.4-1.0); TOTAL PROTEIN 7.3 g/dL (6.7-8.2)
[2020-07-27 12:21] LABS: HEPATITIS C ANTIBODY NON-REACTIVE (NON-REACTIVE)
[2020-07-27 15:12] LABS: HIV AG/AB 4TH GEN NON-REACTIVE (NON-REACTIVE)
== END 2020-07-26 10:12 | disposition home or self-care (01) ==
LOC: LAB.N 10:11
PROVIDERS: ATTEND Nurse Practitioner
DX: Z11.3 Encounter for screening for infections with a predominantly sexual mode of transmission (principal); Z79.899 Other long term (current) drug therapy
CPT/HCPCS: 36415; 80053; 85025; 86317; 86704; 86803; G0475; 87389

== ENCOUNTER 2020-12-04 08:00 | Outpatient (CLI) | payer MEDICARE, MEDICAID | END 2020-12-04 23:59 | disposition home or self-care (01) | LOC: LAB.N 08:00 | PROVIDERS: ATTEND Physician Assistant Medical | DX: N39.0 Urinary tract infection, site not specified (principal) | CPT/HCPCS: 87086 ==

== ENCOUNTER 2021-01-12 08:00 | Outpatient (CLI) | payer MEDICARE, MEDICAID | END 2021-01-12 23:59 | disposition home or self-care (01) | LOC: LAB.N 08:00 | PROVIDERS: ATTEND Physician Assistant Medical | DX: N39.0 Urinary tract infection, site not specified (principal) | CPT/HCPCS: 87086 ==

== ENCOUNTER 2021-01-15 08:00 | Outpatient (CLI) | payer MEDICARE, MEDICAID | END 2021-01-15 23:59 | disposition home or self-care (01) | LOC: LAB.N 08:00 | PROVIDERS: ATTEND Family Medicine | DX: R35.0 Frequency of micturition (principal) | CPT/HCPCS: 87086 ==

== ENCOUNTER 2021-02-06 13:21 | Outpatient (CLI) | payer MEDICARE, MEDICAID ==
[2021-02-06 17:49] LABS: BASOPHILS % (AUTO) 0.2 %; EOSINOPHILS # (AUTO) 0.1 10^3/uL (0.0-0.7); EOSINOPHILS % (AUTO) 0.6 %; LYMPHOCYTES # (AUTO) 1.7 10^3/uL (1.5-3.5); LYMPHOCYTES % (AUTO) 12.1 %; MEAN CORPUSCULAR HEMOGLOBIN 29.5 pg (27.0-31.0); MEAN CORPUSCULAR VOLUME 95.5 fL (81.0-99.0); MEAN PLATELET VOLUME 11.4 fL (7.9-10.8); MONOCYTES # (AUTO) 0.9 10^3/uL (0.0-1.0); MONOCYTES % (AUTO) 6.5 %; NEUTROPHILS # (AUTO) 11.2 10^3/uL (1.5-6.6); NEUTROPHILS % (AUTO) 79.7 %; PLT - PLATELET COUNT 421 10^3/uL (130-450); RED CELL DISTRIBUTION WIDTH 13.4 % (12.0-15.0); WHITE BLOOD COUNT 14.1 x10^3/uL (4.8-10.8)
[2021-02-06 17:57] LABS: ALBUMIN 4.2 g/dL (3.2-5.5); ALBUMIN/GLOBULIN RATIO 1.4 (1.0-2.2); BILIRUBIN,TOTAL 0.3 mg/dL (0.2-1.0); CALCIUM 9.2 mg/dL (8.5-10.3); TOTAL PROTEIN 7.2 g/dL (6.7-8.2)
[2021-02-06 18:04] LABS: THYROID STIMULATING HORMONE 1.02 uIU/mL (0.34-5.60)
[2021-02-06 18:14] LABS: CREATININE 0.7 mg/dL (0.4-1.0)
== END 2021-02-06 23:59 | disposition home or self-care (01) ==
LOC: LAB.WCP 13:21
PROVIDERS: ATTEND Family Medicine
DX: R53.81 Other malaise (principal); R53.83 Other fatigue; M62.838 Other muscle spasm; G35 Multiple sclerosis; G43.909 Migraine, unspecified, not intractable, without status migrainosus; Z79.899 Other long term (current) drug therapy
CPT/HCPCS: 36415; 80053; 80299; 84443; 85025; G0480; 80335; 81599

== ENCOUNTER 2021-05-21 08:00 | Outpatient (CLI) | payer MEDICARE, MEDICAID ==
[2021-05-21 18:27] LABS: BILIRUBIN,URINE NEGATIVE (NEGATIVE); GLUCOSE, URINE (UA) NEGATIVE (NEGATIVE); KETONES,URINE (UA) NEGATIVE (NEGATIVE); LEUKOCYTE ESTERASE, URINE LARGE (NEGATIVE); NITRITE,URINE NEGATIVE (NEGATIVE); OCCULT BLOOD,URINE NEGATIVE (NEGATIVE); PROTEIN,URINE NEGATIVE (NEGATIVE); UROBILINOGEN,URINE 0.2 (NORMAL) E.U./dL (NORMAL)
[2021-05-21 18:45] LABS: CLARITY,URINE CLEAR (CLEAR)
[2021-05-21 19:02] LABS: BACTERIA,URINE None Seen /HPF (None Seen); RBC,URINE 0-5 /HPF (0-5); SQUAMOUS EPITHELIAL CELL,UR RARE Squamous (<= Few)
== END 2021-05-21 23:59 | disposition home or self-care (01) ==
LOC: LAB.N 08:00
PROVIDERS: ATTEND Physician Assistant
DX: R39.15 Urgency of urination (principal); N39.0 Urinary tract infection, site not specified
CPT/HCPCS: 81001; 87086

== ENCOUNTER 2021-08-06 09:18 | Outpatient (CLI) | payer MEDICARE, MEDICAID | END 2021-08-06 23:59 | disposition home or self-care (01) | LOC: LAB.N 09:18 | PROVIDERS: ATTEND Family Medicine | DX: N39.0 Urinary tract infection, site not specified (principal) | CPT/HCPCS: 87077; 87086 ==

== ENCOUNTER 2021-09-10 08:35 | Outpatient (CLI) | payer MEDICARE, MEDICAID | END 2021-09-10 23:59 | disposition home or self-care (01) | LOC: LAB.N 08:35 | PROVIDERS: ATTEND Family Medicine | DX: N39.0 Urinary tract infection, site not specified (principal) | CPT/HCPCS: 87086; 87181 ==

== ENCOUNTER 2021-09-16 08:00 | Outpatient (CLI) | payer MEDICARE, MEDICAID ==
[2021-09-16 18:08] LABS: BASOPHILS # (AUTO) 0.1 10^3/uL (0.0-0.1); BASOPHILS % (AUTO) 0.5 %; EOSINOPHILS # (AUTO) 0.1 10^3/uL (0.0-0.7); EOSINOPHILS % (AUTO) 0.8 %; HCT - HEMATOCRIT 42.4 % (37.0-47.0); HGB - HEMOGLOBIN 13.7 g/dL (12.0-16.0); LYMPHOCYTES # (AUTO) 1.7 10^3/uL (1.5-3.5); LYMPHOCYTES % (AUTO) 16.6 %; MEAN CORPUSCULAR HEMOGLOBIN 29.7 pg (27.0-31.0); MEAN CORPUSCULAR HGB CONC 32.3 g/dL (32.0-36.0); MEAN CORPUSCULAR VOLUME 91.8 fL (81.0-99.0); MEAN PLATELET VOLUME 12.2 fL (7.9-10.8); MONOCYTES # (AUTO) 0.7 10^3/uL (0.0-1.0); MONOCYTES % (AUTO) 7.3 %; NEUTROPHILS # (AUTO) 7.6 10^3/uL (1.5-6.6); NEUTROPHILS % (AUTO) 74.5 %; PLT - PLATELET COUNT 414 10^3/uL (130-450); RED BLOOD COUNT 4.62 10^6/uL (4.20-5.40); RED CELL DISTRIBUTION WIDTH 14.6 % (12.0-15.0); WHITE BLOOD COUNT 10.2 x10^3/uL (4.8-10.8)
[2021-09-16 19:13] LABS: ALBUMIN 4.3 g/dL (3.2-5.5); ALBUMIN/GLOBULIN RATIO 1.3 (1.0-2.2); BILIRUBIN,TOTAL 0.2 mg/dL (0.2-1.0); CALCIUM 9.5 mg/dL (8.5-10.3); CREATININE 0.6 mg/dL (0.4-1.0); TOTAL PROTEIN 7.7 g/dL (6.7-8.2)
== END 2021-09-16 23:59 ==
LOC: LAB.N 08:00
PROVIDERS: ATTEND Nurse Practitioner
DX: N39.0 Urinary tract infection, site not specified (principal)
CPT/HCPCS: 36415; 80053; 85025; 87086

== ENCOUNTER 2021-11-06 13:47 | Outpatient (CLI) | payer MEDICARE, MEDICAID ==
[2021-11-06 14:00] LABS: BILIRUBIN,URINE NEGATIVE (NEGATIVE); GLUCOSE, URINE (UA) NEGATIVE (NEGATIVE); KETONES,URINE (UA) NEGATIVE (NEGATIVE); LEUKOCYTE ESTERASE, URINE LARGE (NEGATIVE); NITRITE,URINE NEGATIVE (NEGATIVE); OCCULT BLOOD,URINE NEGATIVE (NEGATIVE); PH,URINE 7.5 PH (5.0-7.5); PROTEIN,URINE NEGATIVE (NEGATIVE); UROBILINOGEN,URINE 0.2 (NORMAL) E.U./dL (NORMAL)
[2021-11-06 14:08] LABS: BACTERIA,URINE Few /HPF (None Seen); CLARITY,URINE SL. CLOUDY (CLEAR); RBC,URINE 0-5 /HPF (0-5); SQUAMOUS EPITHELIAL CELL,UR MOD Squamous (<= Few)
== END 2021-11-06 23:59 | disposition home or self-care (01) ==
LOC: LAB 13:47
PROVIDERS: ATTEND Psychiatry & Neurology Neurology
DX: R30.0 Dysuria (principal)
CPT/HCPCS: 81001; 87086

== ENCOUNTER 2021-11-22 08:00 | Outpatient (CLI) | payer MEDICARE, MEDICAID | END 2021-11-22 23:59 | disposition home or self-care (01) | LOC: LAB.R 08:00 | PROVIDERS: ATTEND Physician Assistant | DX: R30.0 Dysuria (principal) | CPT/HCPCS: 87086 ==

== ENCOUNTER 2022-03-28 08:00 | Outpatient (CLI) | payer MEDICARE, MEDICAID | END 2022-03-28 23:59 | disposition home or self-care (01) | LOC: LAB.N 08:00 | PROVIDERS: ATTEND Physician Assistant | DX: N39.0 Urinary tract infection, site not specified (principal) | CPT/HCPCS: 87086; 87181 ==

== ENCOUNTER 2022-04-26 08:00 | Outpatient (CLI) | payer MEDICARE, MEDICAID | END 2022-04-26 23:59 | disposition home or self-care (01) | LOC: LAB.N 08:00 | PROVIDERS: ATTEND Registered Nurse | DX: N39.0 Urinary tract infection, site not specified (principal) | CPT/HCPCS: 87086; 87181 ==

== ENCOUNTER 2022-05-19 08:00 | Outpatient (CLI) | payer MEDICARE, MEDICAID | END 2022-05-19 23:59 | disposition home or self-care (01) | LOC: LAB.N 08:00 | PROVIDERS: ATTEND Physician Assistant Medical | DX: R30.0 Dysuria (principal) | CPT/HCPCS: 87086; 87181 ==

== ENCOUNTER 2022-12-09 14:47 | Outpatient (CLI) | payer MEDICARE, MEDICAID ==
--- NOTE | 2022-12-09 18:33 | Ultrasound Report ---
PROCEDURE: Pelvic w/Transvaginal INDICATIONS: OVARIAN CYST TECHNIQUE: Real-time scanning was performed of the pelvic organs, with image documentation. Additional endovagi nal scanning was necessary due to incomplete visualization of the adnexal and endometrial structures by transabdominal scanning. COMPARISON: None. FINDINGS: Uterus: Uterus is retroverted and normal in size at 7.2 x 4.3 x 5.3 cm. The myometrium is heterogen ous. The endometrium measures 8 mm in combined thickness. Ovaries: The right ovary measures 3.5 x 2.1 x 2.4 cm, with a calculated ovarian volume of 9.3 cc. T he left ovary measures 3.4 x 2.2 x 2.9 cm, . The ovaries have a normal sonographic appearance. Grea ter than 12 follicles noted in bilaterally. Left ovarian cyst measures 1.2 cm No adnexal masses are seen. IMPRESSION: Greater than 12 ovarian follicles are noted bilaterally. This finding has been described in polycysti c ovarian syndrome in the proper clinical setting Reviewed by: Montana Mcgowan MD on 12/09/2022 5:32 PM AKALBERTO Approved by: Montana Mcgowan MD on 12/09/2022 5:32 PM AKALBERTO Station ID: [id number]
== END 2022-12-09 14:48 | disposition home or self-care (01) ==
LOC: DI 14:47
PROVIDERS: ATTEND Obstetrics & Gynecology
DX: N83.291 Other ovarian cyst, right side (principal)

== ENCOUNTER 2022-12-16 13:00 | Outpatient (CLI) | payer MEDICARE, MEDICAID | END 2022-12-16 13:15 | disposition home or self-care (01) | LOC: LAB.N 13:00 | PROVIDERS: ATTEND Specialist | DX: N39.0 Urinary tract infection, site not specified (principal) | CPT/HCPCS: 87086; 87181 ==

== ENCOUNTER 2023-06-03 15:15 | Outpatient (CLI) | payer MEDICARE, MEDICAID | END 2023-06-03 15:30 | disposition home or self-care (01) | LOC: LAB.N 15:15 | PROVIDERS: ATTEND Family Medicine | DX: N39.0 Urinary tract infection, site not specified (principal) | CPT/HCPCS: 87086; 87181 ==

== ENCOUNTER 2023-08-04 14:09 | Outpatient (CLI) | payer MEDICARE, MEDICAID ==
--- NOTE | 2023-08-04 17:59 | Ultrasound Report ---
PROCEDURE: Renal (Retroperitoneal) INDICATIONS: RECURRENT UTI TECHNIQUE: Real-time scanning was performed of the retroperitoneal organs, with image documentation. COMPARISON: None. FINDINGS: Kidneys: Kidneys are normal in size. Right kidney measures 10.4 cm long; left kidney measures 10.0 cm long. Right renal cortical thickness is 1.3 cm; left renal cortical thickness is 1.3 cm. No laura d masses, hydronephrosis, or nephrolithiasis. Bladder: Pre-void bladder volume is 33.2 mL. Post-void residual is 8.6 mL. Pre-void images demonst rate no intraluminal masses or stones. On pre-void images, bilateral ureteral jets are noted with co fredrick Doppler interrogation. (Of note, ureteral jets may not be detectable in up to 25% of cases due t o insufficient differences in specific gravity between ureteral and bladder urine). Miscellaneous: No free abdominal fluid. IMPRESSION: Normal size kidneys with no evidence of hydronephrosis. Unremarkable bladder. Reviewed by: Thierno Marr MD on 08/04/2023 5:58 PM PST Approved by: Thierno Marr MD on 08/04/2023 5:58 PM PST Station ID: [id number]
== END 2023-08-04 14:10 | disposition home or self-care (01) ==
LOC: DI 14:09
PROVIDERS: ATTEND Urology
DX: N39.0 Urinary tract infection, site not specified (principal)

== ENCOUNTER 2023-09-10 08:00 | Outpatient (CLI) | payer MEDICARE, MEDICAID | END 2023-09-10 23:59 | disposition home or self-care (01) | LOC: PC 08:00 | PROVIDERS: ATTEND Nurse Practitioner Gerontology | DX: Z51.5 Encounter for palliative care (principal); G89.29 Other chronic pain; G35 Multiple sclerosis; F41.9 Anxiety disorder, unspecified; F31.9 Bipolar disorder, unspecified; Z79.891 Long term (current) use of opiate analgesic; F90.9 Attention-deficit hyperactivity disorder, unspecified type; Z86.73 Personal history of transient ischemic attack (TIA), and cerebral infarction without residual deficits | CPT/HCPCS: 99349 ==

== ENCOUNTER 2023-09-24 08:00 | Outpatient (CLI) | payer MEDICARE, MEDICAID | END 2023-09-24 23:59 | disposition home or self-care (01) | LOC: PC 08:00 | PROVIDERS: ATTEND Nurse Practitioner Gerontology | DX: Z51.5 Encounter for palliative care (principal); G35 Multiple sclerosis; M79.2 Neuralgia and neuritis, unspecified; F41.9 Anxiety disorder, unspecified; Z63.0 Problems in relationship with spouse or partner; F31.9 Bipolar disorder, unspecified; Z79.899 Other long term (current) drug therapy; Z79.891 Long term (current) use of opiate analgesic; Z79.82 Long term (current) use of aspirin; Z74.09 Other reduced mobility; F17.290 Nicotine dependence, other tobacco product, uncomplicated | CPT/HCPCS: 99349 ==

== ENCOUNTER 2023-09-30 08:00 | Outpatient (CLI) | payer MEDICARE, MEDICAID | END 2023-09-30 23:59 | disposition home or self-care (01) | LOC: PC 08:00 | PROVIDERS: ATTEND Nurse Practitioner Gerontology | DX: Z51.5 Encounter for palliative care (principal); G35 Multiple sclerosis; G63 Polyneuropathy in diseases classified elsewhere; G89.29 Other chronic pain; F90.9 Attention-deficit hyperactivity disorder, unspecified type; F41.9 Anxiety disorder, unspecified; F32.A Depression, unspecified; I10 Essential (primary) hypertension; K59.00 Constipation, unspecified; R42 Dizziness and giddiness; M50.30 Other cervical disc degeneration, unspecified cervical region; N31.9 Neuromuscular dysfunction of bladder, unspecified; Z79.891 Long term (current) use of opiate analgesic; Z79.899 Other long term (current) drug therapy; Z71.89 Other specified counseling; Z63.8 Other specified problems related to primary support group | CPT/HCPCS: 99349 ==

== ENCOUNTER 2023-10-04 08:00 | Outpatient (CLI) | payer MEDICARE, MEDICAID | END 2023-10-04 23:59 | disposition home or self-care (01) | LOC: PC 08:00 | PROVIDERS: ATTEND Nurse Practitioner Gerontology | DX: Z51.5 Encounter for palliative care (principal); G35 Multiple sclerosis | CPT/HCPCS: 99426; 99427 ==

== ENCOUNTER 2023-10-26 08:00 | Outpatient (CLI) | payer MEDICARE, MEDICAID | END 2023-10-26 08:01 | disposition home or self-care (01) | LOC: PC 08:00 | PROVIDERS: ATTEND Nurse Practitioner Gerontology | DX: Z51.5 Encounter for palliative care (principal); G35 Multiple sclerosis; G89.29 Other chronic pain; R20.8 Other disturbances of skin sensation; Z79.899 Other long term (current) drug therapy; Z79.891 Long term (current) use of opiate analgesic; F41.9 Anxiety disorder, unspecified; F32.A Depression, unspecified; F90.9 Attention-deficit hyperactivity disorder, unspecified type; Z63.8 Other specified problems related to primary support group; Z86.73 Personal history of transient ischemic attack (TIA), and cerebral infarction without residual deficits; Z74.09 Other reduced mobility | CPT/HCPCS: 99350 ==

== ENCOUNTER 2023-11-03 08:00 | Outpatient (CLI) | payer MEDICARE, MEDICAID | END 2023-11-03 23:59 | disposition home or self-care (01) | LOC: PC 08:00 | PROVIDERS: ATTEND Nurse Practitioner Gerontology | DX: Z51.5 Encounter for palliative care (principal); G35 Multiple sclerosis | CPT/HCPCS: 99426; 99427 ==

== ENCOUNTER 2023-11-12 08:00 | Outpatient (CLI) | payer MEDICARE, MEDICAID | END 2023-11-12 23:59 | disposition home or self-care (01) | LOC: LAB.N 08:00 | PROVIDERS: ATTEND Nurse Practitioner Gerontology | DX: N39.0 Urinary tract infection, site not specified (principal) | CPT/HCPCS: 87086; 87181 ==

== ENCOUNTER 2023-11-16 08:00 | Outpatient (CLI) | payer MEDICARE, MEDICAID | END 2023-11-16 23:59 | disposition home or self-care (01) | LOC: PC 08:00 | PROVIDERS: ATTEND Nurse Practitioner Gerontology | DX: Z51.5 Encounter for palliative care (principal); G35 Multiple sclerosis; M79.2 Neuralgia and neuritis, unspecified; G89.21 Chronic pain due to trauma; N39.0 Urinary tract infection, site not specified; B96.20 Unspecified Escherichia coli [E. coli] as the cause of diseases classified elsewhere; F41.9 Anxiety disorder, unspecified; F31.9 Bipolar disorder, unspecified; Z79.891 Long term (current) use of opiate analgesic; Z79.899 Other long term (current) drug therapy; Z74.09 Other reduced mobility; F17.290 Nicotine dependence, other tobacco product, uncomplicated; Z65.9 Problem related to unspecified psychosocial circumstances | CPT/HCPCS: 99350 ==

== ENCOUNTER 2023-12-04 08:00 | Outpatient (CLI) | payer MEDICARE, MEDICAID | END 2023-12-04 23:59 | disposition home or self-care (01) | LOC: PC 08:00 | PROVIDERS: ATTEND Nurse Practitioner Gerontology | DX: Z51.5 Encounter for palliative care (principal); G35 Multiple sclerosis | CPT/HCPCS: 99426; 99427 ==

== ENCOUNTER 2023-12-17 08:00 | Outpatient (CLI) | payer MEDICARE, MEDICAID | END 2023-12-17 23:59 | disposition home or self-care (01) | LOC: PC 08:00 | PROVIDERS: ATTEND Nurse Practitioner Gerontology | DX: Z51.5 Encounter for palliative care (principal); G89.21 Chronic pain due to trauma; M54.2 Cervicalgia; M54.9 Dorsalgia, unspecified; M79.2 Neuralgia and neuritis, unspecified; G35 Multiple sclerosis; F41.9 Anxiety disorder, unspecified; I10 Essential (primary) hypertension; F31.9 Bipolar disorder, unspecified; R42 Dizziness and giddiness; Z65.9 Problem related to unspecified psychosocial circumstances | CPT/HCPCS: 99350 ==

== ENCOUNTER 2024-02-03 08:00 | Outpatient (CLI) | payer MEDICARE, MEDICAID | END 2024-02-03 23:59 | disposition home or self-care (01) | LOC: PC 08:00 | PROVIDERS: ATTEND Nurse Practitioner Gerontology | DX: Z51.5 Encounter for palliative care (principal); G35 Multiple sclerosis | CPT/HCPCS: 99426 ==

== ENCOUNTER → 2024-02-10 | Outpatient (CLI) | payer MEDICARE, MEDICAID | LOC: PC 02-08 08:00 | PROVIDERS: ATTEND Nurse Practitioner Gerontology | DX: Z51.5 Encounter for palliative care (principal); G35 Multiple sclerosis; M54.2 Cervicalgia; M54.9 Dorsalgia, unspecified; G89.29 Other chronic pain; R53.83 Other fatigue; K59.00 Constipation, unspecified; R41.89 Other symptoms and signs involving cognitive functions and awareness; F41.9 Anxiety disorder, unspecified; R51.9 Headache, unspecified; Z79.620 Long term (current) use of immunosuppressive biologic; Z79.899 Other long term (current) drug therapy; R53.1 Weakness; M79.2 Neuralgia and neuritis, unspecified; B97.89 Other viral agents as the cause of diseases classified elsewhere; F11.94 Opioid use, unspecified with opioid-induced mood disorder; Z71.89 Other specified counseling | CPT/HCPCS: 99350 ==